=== PATIENT | male | born 2000 ===

== ENCOUNTER 2022-07-10 15:00 | Emergency (ER) | payer SELFPAY ==
--- NOTE | 2022-07-10 15:02 | ECG_ITS ---
Measurements Intervals [place] Rate: 98 P: 79 ME: 180 QRS: 87 QRSD: 91 T: 35 QT: 319 QTc: 409 Interpretive Statements SINUS RHYTHM ST ELEVATION, PROBABLY EARLY REPOLARIZATION [ST ELEVATION WITH NORMALLY INFLECTED T WAVE] NO PREVIOUS ECG AVAILABLE FOR COMPARISON Electronically Signed On 07-11-2022 15:01:19 CDT by Alfred Fraser M.D.
[2022-07-10 16:13] VITALS: BP 144/60; PULSE 86; RESP 16; TEMP 36.9; O2SAT 100
--- NOTE | 2022-07-10 22:21 | PC.NURSE ---
Pt called for vitals, no answer
== END 2022-07-10 22:21 | disposition left against medical advice (07) ==
DX: R00.2 Palpitations (principal)
CPT/HCPCS: 93005; 99199